=== PATIENT | female | born 1970 | race Caucasian/White ===

== ENCOUNTER 2018-10-24 08:49 | Day surgery (SDC) | payer OTHER ==
[2018-10-24] MEDS ORDERED: CEFAZOLIN 2 GM/50 ML (PMX) 50 ML IVPB (09:00)
[2018-10-24] MEDS ORDERED: SOD CHLORIDE 0.9% 1,000 ML IV (09:00)
[2018-10-24 10:29] LABS: ADD MAN DIFF? NO; BASOPHIL # 0.1 10^3/ul (0.0-0.1); BASOPHILS % 0.4 % (0.0-2.0); EOSINOPHILS # 0.3 10^3/ul (0.0-0.5); EOSINOPHILS % 2.9 % (0.0-7.0); HEMATOCRIT 43.5 % (37.0-47.0); HEMOGLOBIN 14.6 g/dl (12.0-16.0); LYMPHOCYTES # 2.3 10^3/ul (0.8-2.9); LYMPHOCYTES % 20.2 % (15.0-51.0); MEAN CORPUSCULAR HEMOGLOBIN 30.6 pg (29.0-33.0); MEAN CORPUSCULAR HGB CONC 33.6 g/dl (32.0-37.0); MEAN CORPUSCULAR VOLUME 91.2 fl (82.0-101.0); MEAN PLATELET VOLUME 10.8 fl (7.4-10.4); MONOCYTE # 0.7 10^3/ul (0.3-0.9); NEUTROPHIL # 8.1 10^3/ul (1.6-7.5); NEUTROPHILS % 70.3 % (39.0-77.0); PLATELET COUNT 293 10^3/UL (140-415); RED BLOOD COUNT 4.77 10^6/ul (4.20-5.40); RED CELL DISTRIBUTION WIDTH 13.9 % (11.5-14.5)
[2018-10-24 10:29] LABS: WHITE BLOOD COUNT 11.5 10^3/ul (4.8-10.8)
[2018-10-24 10:40] LABS: ALANINE AMINOTRANSFERASE 18 IU/L (13-69); ALBUMIN/GLOBULIN RATIO 1.33; ALKALINE PHOSPHATASE 62 IU/L (42-121); ANION GAP 7 (5-13); ASPARTATE AMINO TRANSFERASE 17 IU/L (15-46); BILIRUBIN,INDIRECT 0.7 mg/dl (0-1.1); BILIRUBIN,TOTAL 0.7 mg/dl (0.2-1.3); BLOOD UREA NITROGEN 11 mg/dl (7-20); CALCIUM 8.8 mg/dl (8.4-10.2); CARBON DIOXIDE 23 mmol/L (21-31); CHLORIDE 111 mmol/L (97-110); CREATININE 0.74 mg/dl (0.44-1.00); Estimated GFR > 60 mL/min (>60); GLUCOSE 93 mg/dl (70-220); POTASSIUM 4.1 mmol/L (3.5-5.1); SODIUM 141 mmol/L (135-144)
[2018-10-24 10:53] LABS: INR 0.86; PROTIME 11.8 Sec (11.9-14.9); PT RATIO 0.9
[2018-10-24 10:54] LABS: PARTIAL THROMBOPLASTIN TIME 31.5 Sec (23.0-35.0)
[2018-10-24] MEDS ORDERED: LIDOCAINE 2% (MDV) 20 ML INJ (10:55)
[2018-10-24] MEDS ORDERED: PROCHLORPERAZINE 10 MG INJ IV (11:00)
[2018-10-24] MEDS ORDERED: HYDROmorphONE 1 MG/5 ML IV SYRINGE IV ×3 (11:00)
[2018-10-24] MEDS ORDERED: MEPERIDINE 25 MG INJ IV (11:00)
[2018-10-24] MEDS ORDERED: ONDANSETRON 4 MG INJ IV (11:00)
[2018-10-24] MEDS ORDERED: FENTAnyl 50 MCG/ML VIAL IV (11:00)
[2018-10-24] MEDS ORDERED: DIPHENHYDRAMINE 50 MG INJ IV (11:00)
[2018-10-24] MEDS ORDERED: LIDOCAINE 2% (SDV) 5 ML INJ (11:05)
[2018-10-24] MEDS ORDERED: PROPOFOL 20 ML (11:05)
[2018-10-24] MEDS ORDERED: FENTAnyl 50 MCG/ML VIAL (11:06)
[2018-10-24] MEDS ORDERED: DEXAMETHASONE 4 MG/ML 5 ML INJ (11:23)
[2018-10-24] MEDS ORDERED: ONDANSETRON 4 MG INJ (11:23)
[2018-10-24] MEDS ORDERED: CEFAZOLIN 1 GM INJ (11:23)
[2018-10-24] MEDS ORDERED: FAMOTIDINE 20 MG INJ (11:23)
[2018-10-24] MEDS ORDERED: ACETAMINOPHEN 1000MG/100ML IV 100 ML IVPB (11:30)
[2018-10-24] MEDS ORDERED: EPHEDrine 25 MG/5 ML SYG (11:33)
[2018-10-24] MEDS: BUPIVACAINE 0.5% (SDV) 30 ML INJ (11:34)
[2018-10-24] MEDS ORDERED: BACITRACIN/POLYMYXIN 28.35 GM OINT TOP (11:41)
[2018-10-24] MEDS ORDERED: HYDROCODONE/APAP (5/325) TAB PO (12:00)
[2018-10-24] MEDS ORDERED: ACETAMINOPHEN 500 MG TAB PO (12:30)
[2018-10-24] MEDS ORDERED: ACETAMINOPHEN 325 MG TAB (12:35)
[2018-10-24] MEDS: ACETAMINOPHEN 325 MG TAB PO (12:38)
== END 2018-10-24 13:30 | disposition home or self-care (01) ==
LOC: SDS 08:49
DX: L72.11 Pilar cyst (principal); R22.0 Localized swelling, mass and lump, head; Z87.891 Personal history of nicotine dependence
CPT/HCPCS: 14020; 71045; 80053; 85025; 85610; 85730; 88307; 93005